=== PATIENT | female | born 1980 | race Caucasian/White ===

== ENCOUNTER 2016-09-01 08:00 | Inpatient (IN) | payer OTHER ==
[2016-09-01] MEDS ORDERED: OXYTOCIN/RINGERS LACTATE 1,000 ML IV PRN (08:59)
[2016-09-01] MEDS ORDERED: LIDOCAINE 1% 30 ML SDV SC PRN (08:59)
[2016-09-01] MEDS ORDERED: LR 1,000 ML IV PRN (08:59)
[2016-09-01] MEDS ORDERED: EPSOM SALT 454 GM TP PRN (08:59)
[2016-09-01] MEDS ORDERED: TERBUTALINE SULFATE 1 MG/ML VIAL IV PRN (08:59)
[2016-09-01] MEDS ORDERED: IBUPROFEN 600 MG TAB PO PRN (08:59)
[2016-09-01] MEDS ORDERED: OLIVE OIL 118 ML BTL MISC PRN (08:59)
[2016-09-01 09:20] LABS: % IMMATURE GRANULYOCYTES 0.4 % (0.0-1.1); ABSOLUTE IMMATURE GRANULOCYTES 0.04 10^3/uL (0.00-0.10); ADD DIFF? NO; ADD MORPH? NO; ADD SCAN? NO; ATYPICAL LYMPHOCYTE FLAG 0 (0-99); FRAGMENT RBC FLAG 0 (0-99); LEFT SHIFT FLG 0 (0-99); LIPEMIA HEMOLYSIS FLAG 90 (0-99); MEAN CELL HEMOGLOBIN 29.8 pg (27.9-34.1); MEAN CELL HEMOGLOBIN CONCENTR. 34.1 g/dL (32.4-36.7); MEAN CELL VOLUME 87.2 fL (81.5-99.8); MEAN PLATELET VOLUME 11.8 fL (8.7-11.7); PLATELET CLUMPS FLAG 0 (0-99); PLATELET COUNT 111 10^3/uL (150-400)
[2016-09-01] MEDS ORDERED: LIDOCAINE 1% 30 ML SDV ONE (09:24)
[2016-09-01] MEDS ORDERED: MISOPROSTOL 200 MCG TAB ONE (09:25)
[2016-09-01] MEDS ORDERED: OXYTOCIN 10 UNIT/ML VIAL ONE (09:25)
[2016-09-01] MEDS ORDERED: OXYTOCIN/LR *STANDARD DOSE PROTOCOL IV SCH (10:00)
[2016-09-01] MEDS ORDERED: fentaNYL 2MCG/ML/BUP 0.1% RTU 100 ML BAG EP ONE (10:01)
[2016-09-01] MEDS ORDERED: BUPIVACAINE 0.25% 30 ML SDV ONE (10:02)
[2016-09-01] MEDS ORDERED: PHENYLEPHRINE HCL 100 MCG/ML SYR ONE (10:04)
[2016-09-01] MEDS ORDERED: fentaNYL 100 MCG/2 ML INJ ONE (10:04)
--- NOTE | 2016-09-01 11:04 | GHP ---
[f rep st] HISTORY AND PHYSICAL DATE OF ADMISSION: 09/01/2016 ADMITTING DIAGNOSIS: 1) Intrauterine at 40 weeks and 3 days. 2) Intrauterine demise. HISTORY OF PRESENT ILLNESS: The patient is a 35-year-old 3, para 2-0-0- 2 at 40 weeks and 3 days with estimated due date 08/29/2016 by last menstrual period 11/01/2015 which was confirmed by a first-trimester ultrasound at 9 weeks. The patient was seen in our office 3 days ago for routine visit with no complaints. She was complaining of decreased movement over the weekend and presented to our office yesterday and had an ultrasound done that showed an intrauterine demise, no heartbeat was seen and low fluid. The patient was examined in the office, found to be 4 cm dilated, 80% effaced, - 1 station, and intact. Patient was counseled and condolences were given. The patient presents today at labor and delivery for induction of labor. Patient did have good care at [facility], and presented in her 1st trimester at 9 weeks. is complicated by AMA. She had genetic testing done; the quad screen was negative. 20 week scan revealed no abnormal anatomy, no clubfeet seen. The patient did develop anemia of , and is taking iron. GBS culture is negative. PAST OBSTETRIC HISTORY: In 2012, she had a spontaneous vaginal delivery. She delivered a viable male infant weighing 8 pounds 6 ounces at 40 weeks gestation. No complications. done with IUI and Clomid secondary to PCOS. In 2013, she had an uncomplicated vaginal delivery and delivered a viable male infant, 7 pounds 11 ounces at 40 weeks with clubfeet. GYNECOLOGICAL HISTORY: Menarche age 13. Cycles are irregular secondary PCOS. Last menstrual period 11/01/2015. She denies any abnormal Pap smears or exposure to any STDs. She had normal Pap and GC, chlamydia cultures in this . PAST MEDICAL HISTORY: Remarkable for PCOS. Childhood asthma which resolved. PAST SURGICAL HISTORY: Cystectomy done in 2011, wisdom teeth extraction. HOME MEDICATIONS: vitamins, DHEA, Diclegis. ALLERGIES: No known drug allergies. FAMILY HISTORY: Mother and paternal grandmother with thyroid dysfunction. Father and paternal grandfather with hypertension. SOCIAL HISTORY: Patient is . Lives with her , Giancarlo, and their 2 boys. She is a [id number] mom. Denies any alcohol, tobacco or illicit drug use. LABS: A-positive, antibody negative. RPR nonreactive. Rubella immune. Hepatitis B surface antigen negative. HIV negative. Trio screen was negative in 2011. Pap negative. Gonorrhea, chlamydia cultures negative. Quad screen was negative. One hour Glucola was 102. H and H 12.1 and 35.8. GBS culture is negative. PHYSICAL EXAMINATION: VITAL SIGNS: On admission, vital signs are stable. Afebrile. GENERAL: Patient is well-nourished, well-developed female, alert and oriented x3, NAD. CARDIOVASCULAR: Regular rate and rhythm. LUNGS: Clear to auscultation. ABDOMEN: Gravid, soft, nontender. EXTREMITIES: Normal to inspection without edema or calf tenderness. PELVIC: Deferred at this time. ASSESSMENT: The patient is a 35-year-old 2, para 0-0-2 at 40 and 3 weeks gestation with intrauterine demise. PLAN: 1. Admit to labor and delivery for induction of labor. 2. Will start Pitocin per protocol secondary to favorable cervix. 3. GBS culture is negative. 4. Epidural upon patient's request. 5. Patient requests to see baby girl after delivery, wrapped in a towel and they plan on a small service. Patient does not desire an autopsy at this time, since she is AMA and does not plan on getting again. /[id number]/MODL MTDD
--- NOTE | 2016-09-01 11:48 | OBPROG ---
OBG Progress Note Assessment/Plan: Assessment: Pt is 35 y/o @ 40 3/7 wks with IUFD for IOL Plan: Pt is s/p epidural, comfortable Pitocin at 6 mu/min with ctx's q 10 min SROM - moderate amount of clear fluid at 1030 Continue current management 09/01/16 11:48 Subjective: Pt is comfortable, s/p epidural with no complaints. Objective: 09/01/16 09:05 Patient ABO/Rh A POSITIVE 09/01/16 09:05 Current Contraction Pattern: Regular Membranes: SROM Amniotic Fluid Color: Clear ICD10 Worksheet Patient Problems: Problems Problem Status Onset demise, greater than 22 weeks, antepartum, single gestation Acute
--- NOTE | 2016-09-01 14:01 | OBPROG ---
OBG Progress Note Assessment/Plan: Assessment: Pt is 35 y/o @ 40 3/7 wks with IUFD for IOL Plan: Pitocin at 12 mu/min with ctx's q 3-4 min Will re-bolus secondary to low back pain Continue current management 09/01/16 14:00 Subjective: Pt is c/o low back pain. Objective: 09/01/16 09:05 Patient ABO/Rh A POSITIVE 09/01/16 09:05 Current Contraction Pattern: Regular ICD10 Worksheet Patient Problems: Problems Problem Status Onset demise, greater than 22 weeks, antepartum, single gestation Acute
[2016-09-01] MEDS ORDERED: LR 500 ML IV SCH (14:30)
[2016-09-01] MEDS ORDERED: fentaNYL 2MCG/ML/BUP 0.1% RTU 100 ML EP SCH (14:30)
[2016-09-01] MEDS ORDERED: ONDANSETRON 4 MG/2 ML VIAL IVP PRN (14:30)
--- NOTE | 2016-09-01 14:33 | POSTANESTH ---
Post Anesthetic Evaluation Cardiovascular Status: Normal, Stable Respiratory Status: Normal, Stable, Similar to Pre-op Cond. Level of Consciousness/Mental Status: Can Participate in Eval, Alert and Oriented (Tolerated CSE well, stable, comfortable.) Pain Control: Adequate, Prn Tx Ordered Nausea/Vomiting Control: Adequate, Prn Tx Ordered Complications Possibly Related to Anesthesia: None Noted
[2016-09-01] MEDS ORDERED: ONDANSETRON 4 MG/2 ML VIAL ONE (14:36)
[2016-09-01] MEDS ORDERED: METOCLOPRAMIDE 10 MG/2 ML VIAL ONE (14:37)
[2016-09-01] MEDS: PHENYLEPHRINE HCL 100 MCG/ML SYR IVP PRN ×3 (14:40→14:57)
--- NOTE | 2016-09-01 14:47 | PREANESOB ---
Obstetric Pre-Anesthesia Info - General Info Proposed Procedure: Labor and delivery. : 3 Para: 2 WBD: 40 - Info Status: Full Term - Labor Status Amniotic Fluid Color: Clear Pitocin: In Use Labor Epidural: Proposed ( demise.) Anesthesia ROS: Prior labor x 2 without anesthesia. Allergies/Adverse Reactions: Allergy/AdvReac Type Severity Reaction Status Date / Time No Known Allergies Allergy Unverified 06/01/12 02:33 Home Medications: Medication Instructions Recorded Vit27&Calcium/Iron/FA 1 each PO DAILY 06/01/12 [] Iron Polysacch/Iron Heme Polyp 28 mg PO DAILY #30 tab 02/08/14 [Bifera] Visit Medications: Generic Name Dose Route Start Last Admin Trade Name Freq PRN Reason Stop Dose Admin Diphenhydramine HCl 25 - 50 mg 09/01/16 14:30 Benadryl Injection IVP 02/28/17 14:29 Q6HRS PRN Itching Lactated Ringer's 1,000 mls @ 0 mls/hr 09/01/16 08:59 Lr IV 02/28/17 08:58 PRN PRN SEE PROTOCOL CONDITIONS Protocol Per Protocol Oxytocin/Lactated Ringer's 1,000 mls @ 150 mls/hr 09/01/16 08:59 Pitocin 20 Units/Lr (Premix) IV PRN PRN Post- bleeding Oxytocin/Lactated Ringer's 500 mls @ 0 mls/hr 09/01/16 10:00 Pitocin 30 Units/Lr (Premix) IV 02/28/17 09:59 CONT ALBERTO Protocol Per Protocol Fentanyl/Bupivacaine HCl 100 mls @ 0 mls/hr 09/01/16 14:30 Fentanyl/Bupivacaine/Ns 2 Mcg/Ml 0.1% (Premix EP 09/11/16 14:29 CONT ALBERTO Protocol As Directed Lactated Ringer's 500 mls @ 0 mls/hr 09/01/16 14:30 Lr IV 02/28/17 14:29 CONT ALBERTO As Directed Ibuprofen 600 mg 09/01/16 08:59 Motrin PO 02/28/17 08:58 Q6HRS PRN post , inflammation Lidocaine HCl 30 ml 09/01/16 08:59 Lidocaine Hcl 1% SC 02/28/17 08:58 ONCE PRN Episiotomy Magnesium Sulfate 454 gm 09/01/16 08:59 Epsom Salt TP 02/28/17 08:58 PRN PRN perineal discomfort [place] Oil 118 ml 09/01/16 08:59 Sweet Oil MISC 02/28/17 08:58 ONCE PRN preneal massage Ondansetron HCl 4 mg 09/01/16 14:30 Zofran IVP 02/28/17 14:29 Q4HRS PRN Nausea/Vomiting, Can't Take PO Phenylephrine HCl 100 mcg 09/01/16 14:30 09/01/16 14:40 Derek-Synephrine IVP 02/28/17 14:29 100 mcg .Q2M PRN Administration Hypotension Terbutaline Sulfate 0.25 mg 09/01/16 08:59 Brethine IV 02/28/17 08:58 ONCE PRN Tachysystole Discontinued Medications Generic Name Dose Route Start Last Admin Trade Name Freq PRN Reason Stop Dose Admin Bupivacaine HCl Confirm 09/01/16 10:02 Sensorcaine 0.25% Sdv Administered 09/01/16 10:03 Dose 30 ml .ROUTE .STK-MED ONE Fentanyl Confirm 09/01/16 10:04 Sublimaze Administered 09/01/16 10:05 Dose 100 mcg .ROUTE .STK-MED ONE Fentanyl/Bupivacaine HCl Confirm 09/01/16 10:01 Fentanyl/Bupivacaine/Ns 2 Mcg/Ml 0.1% (Premix Administered 09/01/16 10:02 Dose 100 ml EP .STK-MED ONE Lidocaine HCl Confirm 09/01/16 09:24 Lidocaine Hcl 1% Administered 09/01/16 09:25 Dose 30 ml .ROUTE .STK-MED ONE Metoclopramide HCl Confirm 09/01/16 14:37 Reglan Injection Administered 09/01/16 14:38 Dose 10 mg .ROUTE .STK-MED ONE Misoprostol Confirm 09/01/16 09:25 Cytotec Administered 09/01/16 09:26 Dose 800 mcg .ROUTE .STK-MED ONE Ondansetron HCl Confirm 09/01/16 14:36 Zofran Administered 09/01/16 14:37 Dose 4 mg .ROUTE .STK-MED ONE Oxytocin Confirm 09/01/16 09:25 Pitocin Administered 09/01/16 09:26 Dose 30 unit .ROUTE .STK-MED ONE Phenylephrine HCl Confirm 09/01/16 10:04 Derek-Synephrine Administered 09/01/16 10:05 Dose 1,000 mcg .ROUTE .STK-MED ONE - Anesthesia History Response to Local Anesthetics: Normal Family Anesthesia History: Negative - Social History Substance Use/Abuse: Denies - Focused Exam Blood Pressure: 115/74 Heart Rate: 104 Height/Weight (Nursing): Height 160.02 cm Weight 63.049 kg Physical Exam: Within normal limits. ASA Status: II Labs: 09/01/16 09:05 Patient ABO/Rh A POSITIVE 09/01/16 09:05 - Plan Anesthetic Plan: CSE Consent Signed and on Chart: Yes Patient/Guardian Understands and Agrees to Plan: Yes
--- NOTE | 2016-09-01 16:36 | OBPROG ---
OBG Progress Note Assessment/Plan: Assessment: Pt is 35 y/o @ 40 3/7 wks with IUFD for IOL Plan: Pitocin at 20 mu/min with ctx's q 3-4 min Continue current management 09/01/16 16:33 Subjective: Low back pain resolved; She is having some nausea, vomited twice. Objective: 09/01/16 09:05 Patient ABO/Rh A POSITIVE 09/01/16 09:05 Temp Pulse Resp BP Pulse Ox 104 H 115/74 09/01/16 14:51 09/01/16 14:51 - SVE Dilation (cm): 8 Effacement (%): 100 Station: +1 Current Contraction Pattern: Regular Membranes: SROM Amniotic Fluid Color: Clear ICD10 Worksheet Patient Problems: Problems Problem Status Onset demise, greater than 22 weeks, antepartum, single gestation Acute
[2016-09-01] MEDS ORDERED: HYDROCORTISONE 0.5% CREAM TP PRN (17:13)
[2016-09-01] MEDS ORDERED: HYDROCODONE/APAP 5/325 TAB PO PRN (17:13)
[2016-09-01] MEDS ORDERED: SIMETHICONE 80 MG TAB CHEW PO PRN (17:13)
[2016-09-01] MEDS ORDERED: DOCUSATE SODIUM 100 MG CAP PO PRN (17:13)
--- NOTE | 2016-09-01 17:22 | OBPROC ---
- Labor and Delivery Onset of Contractions Date: 09/01/16 Onset of Contractions Time: 09:00 Onset of Contractions Type: Induced Rupture of Membranes Date: 09/01/16 Rupture of Membranes Time: 10:47 Rupture of Membranes Type: Spontaneous Amniotic Fluid Color: Clear Dilation Complete Time: 16:00 Delivery Type: Spontaneous Placenta Delivery Date: 09/01/16 Placenta Delivery Time: 17:05 Episiotomy/Laceration: Other (Specify) (Perineum intact) EBL: 250 Complications: None, Other (Specify) (Cord wrapped around L limb twice) - Medications Labor Augmentation/Induction Meds Used: Pitocin Labor Augmentation/Induction Indication: Other (Specify) (IUFD) Anesthesia: Epidural - [place] Info Infant A Delivery Date: 09/01/16 Delivery Time: 17:00 Sex of Infant: Female
[2016-09-01] MEDS: IBUPROFEN 600 MG TAB PO PRN (17:43)
[2016-09-02] MEDS: IBUPROFEN 600 MG TAB PO PRN ×2 (00:03→06:24)
[2016-09-02 02:18] VITALS: RESP 16; TEMP 97.2
[2016-09-02 06:32] VITALS: BP 109/70; PULSE 77
--- NOTE | 2016-09-02 08:10 | SOAPPROG ---
SOAP Progress Note Assessment/Plan: Assessment: 35y/o day 1 s/p demise Plan: Discharge to home Rev precautions consult prior to d/c per pt request [employer] [facility] resources for loss - pt plans to contact group in [place] RTC 2-4 wks for therapy visit RTC 6wks for PP visit - with MD to disc bladder prolapse relief, does not wish to resume pessary use if possible. 09/02/16 08:07 09/02/16 08:15 Subjective: Pt reports doing well this morning. States "last night was rough, but I'm feeling much better today." Normal affect, talkative, smiling. Disc resources for loss at length, pt states plans to contact loss group in [place] which a friend recommended. Will make appt with therapist at clinic within next 2-4 wks. Encouraged pt to call anytime needs to talk or wants to come into clinic. Reports pain well-controlled with Ibuprofen. Tolerating regular diet. Voiding with some difficulty, states typical for her d/t Hx bladder prolapse. Denies BM , flatus. Desires consult - unsure whether best to bind breasts or pump. Objective: Vital Signs Temp Pulse Resp BP Pulse Ox 36.2 C 77 16 109/70 09/02/16 06:31 09/02/16 06:31 09/02/16 06:31 09/02/16 06:31 Laboratory Results 09/01/16 09:05 09/01/16 09/02/16 09/03/16 05:59 05:59 05:59 Output Total 250 Balance -250 Physical Exam - Physical Exam General Appearance: alert, no apparent distress Respiratory: lungs clear, normal breath sounds Cardiac/Chest: regular rate, rhythm Abdomen: non-tender, soft Pelvic Exam: vaginal bleeding (lochia light), other (fundus firm @U-1) Skin: normal color, warm/dry Extremities: normal range of motion, non-tender Neuro/Psych: alert, normal mood/affect, oriented x 3 ICD10 Worksheet Patient Problems: Problems Problem Status Onset demise, greater than 22 weeks, antepartum, single gestation Acute
== END 2016-09-02 11:30 | disposition home or self-care (01) | DRG 775 ==
LOC: FLD 08:49
PROVIDERS: ADMIT Obstetrics & Gynecology; ATTEND Obstetrics & Gynecology
DX: O36.4XX0 Maternal care for intrauterine death, not applicable or unspecified (principal); Z37.1 Single stillbirth; Z3A.40 40 weeks gestation of pregnancy; O69.82X0 Labor and delivery complicated by other cord entanglement, without compression, not applicable or unspecified
CPT/HCPCS: J2370; J2405; J2590; J2765; J3010